=== PATIENT | male | born 1945 | race Caucasian/White ===

== ENCOUNTER 2025-04-01 10:21 | Emergency (ER) | payer MEDICARE, OTHER, SELFPAY ==
[2025-04-01 10:42] VITALS: BP 100/68
[2025-04-01 11:18] LABS: Hematocrit 38.4 % (39.0-52.0); Hemoglobin 12.9 g/dL (13.0-18.0); Mean Corp Hgb Conc. 33.6 g/dL (33.0-37.0); Mean Corpuscular Volume 87.9 fL (80.0-94.0); Nucleated Red Blood Cells % 0 % (-); Platelet Count 165 10^3/uL (130-400); Red Cell Dist. Width 13.6 % (11.5-14.5)
[2025-04-01 11:19] LABS: COVID-19 Antigen Negative (Negative)
[2025-04-01 11:25] LABS: ALT (SGPT) 21 U/L (0-50); AST (SGOT) 21 U/L (17-59); Albumin 4.2 g/dl (3.5-5.0); Alkaline Phosphatase 70 U/L (38-126); Blood Urea Nitrogen 20 mg/dl (9-20); Calcium 8.7 mg/dl (8.4-10.2); Carbon Dioxide 27 mmol/L (22-30); Chloride 103 mmol/L (98-107); Glucose 179 mg/dl (70-99); Potassium 4.4 mmol/L (3.5-5.1); Sodium 136 mmol/L (135-145); Total Protein 7.5 g/dl (6.3-8.2); eGFR > 60.00
[2025-04-01 11:30] LABS: Troponin I < 0.012 ng/ml
[2025-04-01 14:00] VITALS: BP 122/73
[2025-04-01 14:01] VITALS: BMI 32.2
--- NOTE | 2025-04-01 14:02 | ED.GENMED ---
History of Present Illness
<Dianna Guajardo [employer] - Last Filed: 04/02/25 15:10>
General
Chief Complaint: Throat Problem
Source: patient and spouse
Exam Limitations: none
Time Seen by Provider: 04/01/25 13:49
Nursing documentation reviewed up to this point in time: agreed with
History of Present Illness
History of Present Illness:
79 yo male w h/o Afib on Eliquis, HLD presents for pain in his upper chest (points to throat area) and neck up both sides of jaws to ears, worse with swallowing, coughing, talking, felt chills at one point. Symptoms started yesterday afternoon and
have remained constant. Describes sensation as 'pressure' States he did a lot of physical work yesterday, hauling rocks and dirt in wheelbarrow, fixing air conditioner and step into his basement, more activity than usual.
Denies SOB, n/v/d/c, denies abd pain.
Past History
<Dianna Guajardo, [employer] - Last Filed: 04/02/25 15:10>
Past History
ED Past Medical History: Hypercholesterolemia
ED Past Surgical History: None
Social History
Tobacco: Non-smoker
Alcohol: Occasional
Drug: None
Personal:
Living: with family
Employment: Employed
Review of Systems
<Dianna Guajardo, [employer] - Last Filed: 04/02/25 15:10>
Review of Systems
Allergies reviewed?: Yes
All Other Systems: ROS reviewed and negative except as documented in HPI and ROS
Constitutional: Reports chills
EENT: Reports sore throat and other (Ear pain)
Respiratory: Denies trouble breathing
Cardiac: Reports chest pain
ABD/GI: Denies abdominal pain, nausea, vomiting or diarrhea
Musculoskeletal: Denies edema
Skin: Reports no symptoms
Neurological: Reports no symptoms
Phy Exam
<Dianna Guajardo, [employer] - Last Filed: 04/02/25 15:10>
Physical Exam
Physical Exam:
GENERAL: No acute distress. A&Ox3.
CONSTITUTIONAL: Afebrile.
EYES: clear, conjunctivae normal
ENMT: moist mucus membranes, Pharynx nl, TMs normal
RESPIRATORY: Regular respirations, nonlabored, lungs clear.
CARDIOVASCULAR: Regular rate and rhythm, no murmurs, no rubs.
GI: Soft, nontender, normal BS
MUSCULOSKELETAL: Moves with ease. Well perfused.
SKIN: Warm, dry, pink
PSYCH: Normal mood and affect. Well kept, interactive and appropriate
NEUROLOGIC: Awake, alert and oriented. No focal neurological deficits
Course
<Dianna Guajardo, [employer] - Last Filed: 04/02/25 15:10>
Orders/Labs/Results
Orders:
Orders
04/01/25 10:45
Electrocardiogram (*1) Urgent
Reason for Study: Other
Other Reason for Exam: Possible Sepsis
EKG- Treatment ONCE
04/01/25 10:57
COVID-19 Antigen Urgent
Source: Nasal Swab
Complete Blood Count/With Diff Urgent
Comprehensive Metabolic Panel Urgent
Troponin I Urgent
Influenza A+B Rapid Molecular Urgent
TESSA Source: Nasal Swab
Specimen Description:
04/01/25 13:59
Mag Hydrox/Al Hydrox/Simeth [Maalox] 30 ml Phenobarb/Hyoscy/Atropine/Scop [] 10 ml Viscous Lidocaine 2% [Xylocaine Viscous Cup] 10 ml PO NOW
04/01/25 14:11
Mag Hydrox/Al Hydrox/Simeth [Maalox] 30 ml .ROUTE .STK-MED ONE
Phenobarb/Hyoscy/Atropine/Scop [] 10 ml .ROUTE .STK-MED ONE
04/01/25 14:12
Viscous Lidocaine 2% [Xylocaine Viscous Cup] 15 ml .ROUTE .STK-MED ONE
04/01/25 15:25
CR Chest - 2 Views Urgent
Comment:
Reason For Exam: chills, cough
04/01/25 15:32
Rapid Strep Group A Urgent
TESSA Source: Throat/Pharynx
Specimen Description:
Date Specimen was Collected: 04/01/25
Time Specimen was Collected: 15:28
04/01/25 16:32
Acetaminophen [Tylenol] 1,000 mg PO NOW STA
04/01/25 16:36
Amoxicillin 875 mg/Clav 125 mg [Augmentin 875 mg/125 mg] 1 tablet PO NOW STA
04/01/25 16:41
Azithromycin [Zithromax] 500 mg PO NOW STA
Abnormal Lab Results
04/01/25
10:57
RBC 4.37 L 10^6/uL
(4.70-6.10)
Hgb 12.9 L g/dL
(13.0-18.0)
Hct 38.4 L %
(39.0-52.0)
Absolute Lymphs (auto) 0.8 L 10^3/uL
(1.2-3.4)
Neutrophils % 80.0 H %
(42.2-75.2)
Lymphocytes % 10.9 L %
(20.5-51.1)
Glucose 179 H mg/dl
(70-99)
04/01/25 10:57
04/01/25 10:57
Vital Signs
Initial and Last Documented VS:
Initial Vital Signs
Temp Pulse Resp BP Pulse Ox
100.3 F 65 18 100/68 98
04/01/25 10:42 04/01/25 10:42 04/01/25 10:42 04/01/25 10:42 04/01/25 10:42
Last Documented Vital Signs
Temp Pulse Resp BP Pulse Ox
100 F 60 16 119/70 95
04/01/25 16:15 04/01/25 16:15 04/01/25 16:15 04/01/25 16:15 04/01/25 16:15
<Rajat Nina, DO - Last Filed: 04/01/25 16:30>
Orders/Labs/Results
Orders:
Orders
04/01/25 10:45
Electrocardiogram (*1) Urgent
Reason for Study: Other
Other Reason for Exam: Possible Sepsis
EKG- Treatment ONCE
04/01/25 10:57
COVID-19 Antigen Urgent
Source: Nasal Swab
Complete Blood Count/With Diff Urgent
Comprehensive Metabolic Panel Urgent
Troponin I Urgent
Influenza A+B Rapid Molecular Urgent
TESSA Source: Nasal Swab
Specimen Description:
04/01/25 13:59
Mag Hydrox/Al Hydrox/Simeth [Maalox] 30 ml Phenobarb/Hyoscy/Atropine/Scop [] 10 ml Viscous Lidocaine 2% [Xylocaine Viscous Cup] 10 ml PO NOW
04/01/25 14:11
Mag Hydrox/Al Hydrox/Simeth [Maalox] 30 ml .ROUTE .STK-MED ONE
Phenobarb/Hyoscy/Atropine/Scop [] 10 ml .ROUTE .STK-MED ONE
04/01/25 14:12
Viscous Lidocaine 2% [Xylocaine Viscous Cup] 15 ml .ROUTE .STK-MED ONE
04/01/25 15:25
CR Chest - 2 Views Urgent
Comment:
Reason For Exam: chills, cough
04/01/25 15:32
Rapid Strep Group A Urgent
TESSA Source: Throat/Pharynx
Specimen Description:
Date Specimen was Collected: 04/01/25
Time Specimen was Collected: 15:28
04/01/25 16:32
Acetaminophen [Tylenol] 1,000 mg PO NOW STA
04/01/25 16:36
Amoxicillin 875 mg/Clav 125 mg [Augmentin 875 mg/125 mg] 1 tablet PO NOW STA
04/01/25 16:41
Azithromycin [Zithromax] 500 mg PO NOW STA
Abnormal Lab Results
04/01/25
10:57
RBC 4.37 L 10^6/uL
(4.70-6.10)
Hgb 12.9 L g/dL
(13.0-18.0)
Hct 38.4 L %
(39.0-52.0)
Absolute Lymphs (auto) 0.8 L 10^3/uL
(1.2-3.4)
Neutrophils % 80.0 H %
(42.2-75.2)
Lymphocytes % 10.9 L %
(20.5-51.1)
Glucose 179 H mg/dl
(70-99)
04/01/25 10:57
04/01/25 10:57
Vital Signs
Initial and Last Documented VS:
Initial Vital Signs
Temp Pulse Resp BP Pulse Ox
100.3 F 65 18 100/68 98
04/01/25 10:42 04/01/25 10:42 04/01/25 10:42 04/01/25 10:42 04/01/25 10:42
Last Documented Vital Signs
Temp Pulse Resp BP Pulse Ox
100 F 60 16 119/70 95
04/01/25 16:15 04/01/25 16:15 04/01/25 16:15 04/01/25 16:15 04/01/25 16:15
Merrylt;Dianna Guajardo, [employer] - Last Filed: 04/02/25 15:10>
MDM/Problems Addressed
Differential Diagnosis Includes:
pharyngitis, PNA, ACS, GERD
MDM/Problems Addressed:
79 yo male w h/o Afib on Eliquis, HLD presents for pain in his upper chest (points to throat area) and neck up both sides of jaws to ears, worse with swallowing, coughing, talking, felt chills at one point. Symptoms started yesterday afternoon and
have remained constant. Describes sensation as 'pressure.' States he did a lot of physical work yesterday, hauling rocks and dirt in wheelbarrow, fixing air conditioner and step into his basement, more activity than usual.
Denies SOB, n/v/d/c, denies abd pain. Mild bilateral submandibular lymph node tenderness, no significant swelling.
CBC unremarkable
CMP unremarkable
Troponin WNL
Covid neg
No relief after GI cocktail
Dr. Nina in to evaluate
CXR and Rapid strep and throat culture pending.
4:20 p.m.
Rapid strep neg
CXR radiology report read: IMPRESSION:
There is an apparent small right basilar opacity with partial obscuration of the right hemidiaphragm which likely represents pneumonia.
Mild cardiomegaly.
Plan: Augmentin 875 BID and Z pack sent to his pharmacy
<Dianna Guajardo [employer] - Last Filed: 04/02/25 15:10>
*Pulse Oximetry
SaO2: 98
Oxygen Mode of Delivery: Room air
Patient hypoxic: no
*Critical Care Note
Total Time (30-74mins, 75-104mins- exclusive of procedures): Not Applicable
ED Attending Note
<Dianna Guajardo, [employer] - Last Filed: 04/02/25 15:10>
-
Portions of this chart may have been created with voice recognition software.� Occasional wrong word or��sound alike� substitutions may have occurred due to the inherent limitations of voice recognition software.
<Rajat Nina, DO - Last Filed: 04/01/25 16:30>
ED Attending Note
Patient seen and examined by attending physician: Yes
ED Attending Note:
I have reviewed and agree with history treatment plan by Antonella Guajardo DNP. My exam revealed
Physical Exam
General: no apparent distress, not acutely ill
Neck: supple. no meningeal signs. normal posterior pharynx
Heart: s1/s2 regular rate and rhythm, no murmur. equal radial
pulses.
HEENT: Pupils equal round reactive to light, EOMI
Lungs: no acute respiratory distress. clear bilaterally, but faint rhonchi right lung base
Abdomen: normal bowel sounds. not tender. no CVAT
Neuro: alert and oriented. no focal neurological deficits cranial nerves II through XII intact
Skin: no rash
Psychiatric: well kept. interactive and cooperative
Extremities: no edema. no calf tenderness. negative homans. good distal pulses
79-year-old male with possible mild basilar pneumonia. Oxygen stable, vital stable. Treat with Augmentin and azithromycin. Follow-up with primary care. Return precautions given.
Discharge Plan
Departure
Patient Disposition: Home (Routine Discharge)
Date of Disposition: 04/01/25
Time of Disposition: 16:28
Patient with high blood pressure during this ER visit?: No
Condition: Good
Discharge Problem:
Pneumonia, Acute sore throat
Instructions: Pneumonia in adults, Sore Throat, Adult (DC)
Prescriptions:
New
amoxicillin-pot clavulanate 875-125 mg tablet
1 tab PO BID Qty: 20 0RF
azithromycin 250 mg tablet
250 mg PO DAILY 4 Days Qty: 4 0RF
No Action
atorvastatin 20 MG tablet
20 mg PO DAILY
metoprolol succinate 25 MG tablet extended release 24 hr
25 mg PO DAILY Qty: 90 3RF
Rx Instructions:
Start on 02/11 in AM
apixaban [Eliquis] 5 MG tablet
5 mg PO BID Qty: 60 0RF
Rx Instructions:
HOLD post procedure- OK to resume on 02/11 in AM
Referrals:
Zion Gomez, [Family Provider, Internal Medicine] - Call in 1-3 days for appt
Activity Restrictions/Additional Instructions:
As we discussed, You have a small area on your chest xray of what looks like pneumonia
I sent a prescription to your pharmacy for Augmentin 875 twice daily for 10 days and a Z-pack to take as directed.
Interventions
Interventions:
*Risk Screen - Suicide Last Done: 04/01/25 14:06
*General Assessment Last Done: 04/01/25 14:05
*Neglect/Abuse Screening Last Done: 04/01/25 14:06
*ED- Fall Risk Assessment Last Done: 04/01/25 14:05
*ED COVID-19 Vaccine History Last Done: 04/01/25 14:05
*ED Influenza Vaccine History Last Done: 04/01/25 14:05
*Nursing Disposition Last Done: 04/01/25 16:50
ED-EENT Assessment Last Done: 04/01/25 14:15
ED- Pulmonary Assessment Last Done: 04/01/25 14:15
Discharge Date and Time
Discharge Date/Time: 04/01/25 16:50
Print Language: ICELANDIC
[2025-04-01] MEDS: MAALOX 50 PO (14:14)
[2025-04-01 15:00] VITALS: BP 112/68
--- NOTE | 2025-04-01 15:00 | EDRN ---
Dr. Dow in to see pt.
--- NOTE | 2025-04-01 15:21 | EDRN ---
Dr. Nina in room w/ pt at this time.
[2025-04-01 16:15] VITALS: BP 119/70
--- NOTE | 2025-04-01 16:20 | EDRN ---
Keturah Guajardo [employer]INE[employer] in room w/ pt at this time. Keturah Guajardo PAD TUFTER palpated area in neck just under ears and neck and area was painful to palpation and tender.
[2025-04-01] MEDS: TYLENOL 1000 MG PO (16:45)
[2025-04-01] MEDS: ZITHROMAX 500 MG PO (16:45)
[2025-04-01] MEDS: AUGMENTIN 875 MG/125 MG 1 TABLET PO (16:46)
== END 2025-04-01 16:50 | disposition home or self-care (01) ==
LOC: EMR 10:21
PROVIDERS: EMERGENCY PHYSICIAN Emergency Medicine; FAMILY PHYSICIAN Internal Medicine
DX: J18.9 Pneumonia, unspecified organism (principal); R07.0 Pain in throat; I48.91 Unspecified atrial fibrillation; E78.00 Pure hypercholesterolemia, unspecified; Z79.01 Long term (current) use of anticoagulants; Z95.0 Presence of cardiac pacemaker
CPT/HCPCS: 99283; 71046; 80053; 84484; 85025; 87070; 87502; 87811; 87880; 93005